=== PATIENT | female | born 1990 | race Caucasian/White ===

== ENCOUNTER 2018-01-19 09:01 | Inpatient (IN) | payer BC, OTHER ==
[2018-01-19] MEDS ORDERED: TERBUTALINE 1 MG/ML VIAL SQ PRN (10:14)
[2018-01-19] MEDS ORDERED: LIDOCAINE 1% (PF) 10 MG/ML (30 ML SDV) SQ PRN (10:14)
[2018-01-19] MEDS ORDERED: CARBOPROST TROMETHAMINE 250 MCG/ML 1 ML AMP IM PRN (10:14)
[2018-01-19] MEDS ORDERED: OXYTOCIN 10 UNIT/ML 1 ML VIAL IM PRN (10:14)
[2018-01-19] MEDS ORDERED: METHYLERGONOVINE 0.2 MG/ML 1 ML AMP IM PRN (10:14)
[2018-01-19] MEDS ORDERED: BUTORPHANOL 1 MG/ML 1 ML VIAL IV PRN (10:19)
--- NOTE | 2018-01-19 10:30 | P.HPOB ---
History of Present Illness H&P Date: 01/19/18 Chief Complaint: IUP @ 40 4/7 weeks, labor This is a 27yo at 40 4/7 weeks EDC 01/15. She presents with c/o CTX that bagan about 22:45. she notes them about every 3-5 minutes. she denies LOF , VB, and good FM. bloodwork A pos, rubella immune, RPR neg, HBsAg neg, HIV neg, gbs neg. care has been uncomplicated prior . Review of Systems Respiratory: Denies dyspnea Gastrointestinal: Denies constipation, Denies diarrhea Genitourinary: Reports Past Medical History Additional Past Surgical History / Comment(s): wisdom teeth Smoking Status: Never smoker Past Alcohol Use History: None Reported Medications and Allergies Allergies Allergy/AdvReac Type Severity Reaction Status Date / Time No Known Allergies Allergy Verified 01/19/18 10:25 Exam Osteopathic Statement: *. No significant issues noted on an osteopathic structural exam other than those noted in the History and Physical/Consult. - OBG Physical Exam Abdomen: gravid, appropriate for GA Cervix: 4-5/100-2 Uterus: enlarged Assessment and Plan (1) Term Current Visit: Yes Status: Acute Code(s): Z34.80 - ENCOUNTER FOR SUPRVSN OF NORMAL , UNSP TRIMESTER SNOMED Code(s): 45048606 (2) Active labor at term Current Visit: Yes Status: Acute Code(s): WDV2319 - SNOMED Code(s): 40763128 Plan: will admit for active labor, expectant managment. she declines epidural when discussed but is ok with stadol for analgesia. anticipate vaginal delivery this afternoon
[2018-01-19 11:29] LABS: Basophils % (A) 0 %; Eosinophils # (A) 0.1 k/uL (0-0.7); Eosinophils % (A) 0 %; HCT 37.5 % (34.0-46.0); Lymphocytes # (A) 0.7 k/uL (1.0-4.8); Lymphocytes % (A) 4 %; MCH 30.9 pg (25.0-35.0); MCHC 34.8 g/dL (31.0-37.0); Mean Platelet Volume 8.4; Monocytes # (A) 0.4 k/uL (0-1.0); Monocytes % (A) 2 %; Neutrophils # (A) 16.6 k/uL (1.3-7.7); Neutrophils % (A) 93 %; Platelet Count 206 k/uL (150-450); RBC 4.22 m/uL (3.80-5.40); RDW 13.3 % (11.5-15.5); WBC 17.8 k/uL (3.8-10.6)
[2018-01-19] MEDS ORDERED: NALOXONE 0.4 MG/ML 1 ML VIAL IV PRN (11:29)
[2018-01-19] MEDS ORDERED: HYDROCORTISONE 2.5% RECTAL CREAM 30 GM TUBE RECTAL PRN (12:14)
[2018-01-19] MEDS ORDERED: diphenhydrAMINE 50 MG CAP PO PRN (12:14)
[2018-01-19] MEDS ORDERED: ZOLPIDEM 5 MG TAB PO PRN (12:14)
[2018-01-19] MEDS ORDERED: SIMETHICONE 80 MG CHEWABLE PO PRN (12:14)
[2018-01-19] MEDS ORDERED: diphenhydrAMINE 25 MG CAP PO PRN (12:14)
[2018-01-19] MEDS ORDERED: diphenhydrAMINE 50 MG/ML 1 ML VIAL IVP PRN ×2 (12:14)
[2018-01-19] MEDS ORDERED: WITCH HAZEL 1 EACH MED..PAD TOPICAL PRN (12:14)
[2018-01-19] MEDS ORDERED: IBUPROFEN 600 MG TAB PO PRN (12:14)
[2018-01-19] MEDS ORDERED: BENZOCAINE/MENTHOL SPRAY 1 GM/SPRAY AEROSOL TOPICAL PRN (12:14)
[2018-01-19] MEDS ORDERED: LANOLIN CREAM 5 GM TUBE TOPICAL PRN (12:14)
[2018-01-19] MEDS ORDERED: ACETAMINOPHEN TAB 325 MG TAB PO PRN (12:14)
--- NOTE | 2018-01-19 12:14 | P.PROBDLV ---
Vaginal Delivery Note - . Vaginal Delivery Note: 27-year-old at 40-4/7 weeks that presented with complaints of active labor , rupture of membranes at some point as minimal fluid was noted during labor. Patient was noted to be group beta strep negative. Patient progressed to complete began pushing and had a normal spontaneous vaginal delivery, loose nuchal cord was delivered through after the head was delivered slight downward traction to deliver the anterior shoulder, with slight upward traction to deliver the posterior shoulder the 's body was then placed on the maternal abdomen. Spontaneous cry was noted. A delayed cord clamp was proceeded with, the cord was then doubly clamped and cut on inspection the patient's vaginal vault a second-degree midline laceration was noted the placenta was delivered intact spontaneously with three-vessel cord. Vaginal laceration was then repaired with 3-0 Rapide in the usual fashion hemostasis was appreciated on inspection after the laceration was repaired no further lacerations were noted. Estimated blood loss approximately 200 mL next infant girl was delivered at 1151 weight of 7 lbs. 15 oz., Apgars of 8 and 9 at one and 5 minutes respectively. Next Patient and infant tolerated delivery well and are resting comfortably.
[2018-01-19] MEDS ORDERED: OXYTOCIN 20 UNITS/1000 ML NS 1,000 ML IV SCH (12:15)
[2018-01-19] MEDS: LACTATED RINGERS 1,000 ML IV SCH (13:32)
[2018-01-19 16:42] VITALS: BMI 35.0
[2018-01-19] MEDS: SENNOSIDES-DOCUSATE SODIUM 1 EACH TAB PO SCH (19:35)
[2018-01-20] MEDS: LACTATED RINGERS 1,000 ML IV SCH (01:52)
[2018-01-20 04:40] VITALS: RESP 18
[2018-01-20 08:44] VITALS: BP 117/76; PULSE 67; TEMP 97.5
--- NOTE | 2018-01-20 10:23 | P.DS ---
Providers Date of admission: 01/19/18 09:13 Expected date of discharge: 01/20/18 Attending physician: Kristine Wharton Primary care physician: Stated None - Discharge Diagnosis(es) (1) Term Current Visit: Yes Status: Acute (2) Active labor at term Current Visit: Yes Status: Acute Hospital Course: This is a very pleasant 27-year-old 2 para 1 at 404/7 weeks that presented with complaints of active labor yesterday 331. Patient was 5 cm on initial presentation. She progressed through labor became complete and had a normal spontaneous vaginal delivery of a viable female at 1151. Weight of 7 lbs. 15 oz., Apgars of 8 and 9 at one and 5 minutes respectively. A small second-degree vaginal laceration was noted and repaired in usual fashion after the delivery. Patient's post course has been uneventful. She is ambulating and voiding without difficulty she is tolerating a regular diet without nausea or vomiting she states her lochia is minimal. She is breast- feeding without difficulty. Patient Condition at Discharge: Good Plan - Discharge Summary New Discharge Prescriptions: No Action No Known Home Medications [No Known Home Medications] Discharge Medication List No Known Home Medications [No Known Home Medications] 01/19/18 [History] Follow up Appointment(s)/Referral(s): Ayaz Daniel MD [STAFF PHYSICIAN] - 6 Weeks
[2018-01-20] MEDS: SENNOSIDES-DOCUSATE SODIUM 1 EACH TAB PO SCH (12:24)
== END 2018-01-20 12:43 | disposition home or self-care (01) | DRG 775 ==
LOC: FBPOP 09:01 → 4FBP 09:13
PROVIDERS: ADMIT Obstetrics & Gynecology Obstetrics; ATTEND Obstetrics & Gynecology Obstetrics
PROC: 0KQM0ZZ Repair Perineum Muscle, Open Approach (ICD-10-PCS; principal; 2018-01-19)
PROC: 10E0XZZ Delivery of Products of Conception, External Approach (ICD-10-PCS; principal; 2018-01-19)
DX: O70.1 Second degree perineal laceration during delivery (principal); Z37.0 Single live birth; O69.81X0 Labor and delivery complicated by cord around neck, without compression, not applicable or unspecified; Z3A.40 40 weeks gestation of pregnancy
CPT/HCPCS: 85025